=== PATIENT | male | born 1975 | race Caucasian/White ===

== ENCOUNTER 2018-12-07 11:52 | Emergency (ER) | payer OTHER ==
--- OUTSIDE RECORDS SUMMARY | 2018-12-07 12:06 | XMS REPORT | Continuity of Care Document ---
:1975 External Reference #:[id number] Author Name Jeramie Oliveira MD, FACS (transmitted by agent of provider Daya Florian) Address [address] [place] [address] [address] [place] [address] Care Team Providers Name Role Phone Saad Vicente MD - Family Care Team Information [employer] [phone] Medicine Problems Active Problems Provider Date Disturbance in sleep behavior Genesis Monson MD Onset: 01/29/2016 Obstructive sleep apnea syndrome Felicitas Quiroz DNP, RN, KNUCKLER-BC Onset: Hypersomnia Felicitas Quiroz DNP, RN, KNUCKLER-BC Onset: 02/24/2016 Social History Type Date Description Comments Sex Unknown ETOH Use Rarely consumes alcohol Tobacco Use Start: Unknown Patient has never smoked Recreational Drug Use Denies Drug Use Smoking Status Reviewed: 10/22/18 Patient has never smoked Exercise Type/Frequency Exercises regularly Allergies, Adverse Reactions, Alerts Description No Known Drug Allergies Medications Active Medications SIG Qnty Indications Ordering Date Provider Mandibular fabricate oral 1units G47.33 Felicitas Quiroz, 10/11/2016 Advancement Device appliance NIMISHA ENGEL, KNUCKLER-BC /mandibular Device advancement device for sleep apnea with needed adjustments. Fluticasone 2 sprays each Unknown 02/23/2016 Propionate nostril daily as needed 50mcg/Act Suspension Vitamin B-12 2 by mouth every day Unknown 01/29/2016 1000mcg Tablets Parnate 50mg in the a.m. ; Genesis Monson, 01/29/2016 10mg 40 mg stacey SIM Tablets Centrum Mens once a day Unknown 01/28/2016 Tablets Trazodone HCL 5 tablet at bedtime Unknown 50mg as needed Tablets Ketamine IV 48 MG occasionally Unknown Vitamin D 1 cap by mouth daily Unknown Magnesium 1 tab by mouth daily Unknown Medications Administered in Office Medication SIG Qnty Indications Ordering Provider Date No Injection Den Tapia MD 11/28/2017 Injection Immunizations Description No Information Available Vital Signs Date Vital Result Comment 10/22/2018 3:00pm Height 74 inches 6'2" Weight 169.00 lb Heart Rate 60 /min BP Systolic Sitting 128 mmHg BP Diastolic Sitting 78 mmHg Respiratory Rate 16 /min Body Temperature 97.8 F BMI (Body Mass Index) 21.7 kg/m2 08/21/2018 9:30am Height 74 inches 6'2" Heart Rate 73 /min BP Systolic 118 mmHg BP Diastolic 80 mmHg Respiratory Rate 12 /min Body Temperature 97.1 F Pain Level 1 Results Description No Information Available Procedures Description No Information Available Medical Devices Description No Information Available Encounters Type Date Location Provider Dx Diagnosis Office Visit 08/21/2018 [facility] 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 08/21/2018 K40.30 Unilateral inguinal hernia, with Den Elaine M.D. obstruction, without gangre 07/26/2018 M79.604 Pain in right leg Den Elaine M.D. Plan of Treatment 10/22/2018 - Jeramie Oliveira MD, FACSK40.90 Unilateral inguinal hernia, without obstruction or gangrene, not specified as recurrentFollow up:As needed Functional Status Description No Information Available Mental Status Description No Information Available Referrals Refer to Reason for Referral Status Appt Date Jeramie Oliveira MD, CCMBS right inguinal hernia Scheduled 10/22/[address] [place] [address] [address] [place] [address] [phone]
[2018-12-07] MEDS ORDERED: Ibuprofen TAB* 600 MG PO ONE (12:41)
[2018-12-07 12:53] LABS: ABS Basophils 0.1 10^3/ul (0-0.2); ABS Eosinophils 0.4 10^3/ul (0-0.6); ABS Lymphocytes 1.9 10^3/ul (1.0-4.8); ABS Monocytes 0.7 10^3/ul (0-0.8); ABS Neutrophils 4.4 10^3/ul (1.5-7.7); ABS Nucleated RBC 0.1 10^3/ul; Eosinophil % 5.3 %; Hematocrit 46 % (42-52); Hemoglobin 15.9 g/dL (14.0-18.0); Lymphocyte % 25.3 %; Mean Corpuscular HGB Conc 35 g/dL (31-36); Mean Corpuscular Hemoglobin 30 pg (27-31); Mean Corpuscular Volume 88 fL (80-94); Mean Platelet Volume 8.7 fL (7.4-10.4); Nucleated Red Blood Cells % 0.8; Platelet Count 197 10^3/uL (150-450); Red Blood Count 5.25 10^6 /uL (4.18-5.48); Red Cell Distribution Width 13 % (10-15); White Blood Count 7.3 10^3/uL (3.5-10.8)
[2018-12-07 13:13] LABS: Albumin 4.7 g/dL (3.2-5.2); Albumin/Globulin Ratio 1.8 (1-3); BUN/Creatinine Ratio 17.4 (8-20); Calcium 9.7 mg/dL (8.6-10.3); EGFR African American 108.6 (>60); EGFR Non-African American 89.8 (>60); Globulin 2.6 g/dL (2-4); Potassium 4.3 mmol/L (3.5-5.0); Total Bilirubin 0.7 mg/dL (0.2-1.0); Total Protein 7.3 g/dL (6.4-8.9)
--- NOTE | 2018-12-07 14:07 | ED ---
HPI Chest Pain - HPI Summary HPI Summary: This patient is a 43-year-old male presenting to the ED with chest wall pain. He states he fell while [place] running approximately 1 week ago. He states while everything has improved, he continues to have chest wall pain. Symptoms are worse with movement and palpation, better with rest and lying still. He is not use heat or ibuprofen for relief. He states he became concerned as the symptoms had worsened from a 3/10 pain to a 5/10 of pain. He continues to eat and drink okay. Denies any abdominal pain. Denies any signs of trauma or bleeding. He does not have a bleeding disorder and does not take anticoagulation medications. Denies any history of blood clots or bleeding disorder. Denies urinary symptoms. Denies any shortness of breath, however he does endorse these symptoms become worse with coughing. He states the other concern he had was his apple watch detected a low heart rate last evening which he typically has a low heart rate of 45-55, however this stated it was approximately 30. He has been denying any headaches, hemoptysis or other discomforts. He does endorse some pain to the upper back, however this is only with movement and feels muscular. He takes no medications. Denies any allergies. No previous surgeries. PCP is Dr. Vicente. - History of Current Complaint Chief Complaint: EDFall Time Seen by Provider: 12/07/18 12:06 Hx Obtained From: Patient Onset/Duration: Started Weeks Ago - 1 week ago Timing: Constant Initial Severity: Moderate Current Severity: Moderate Pain Intensity: 4 Pain Scale Used: 0-10 Numeric Chest Pain Location: Diffuse - upper chest wall - bilateral Chest Pain Radiates: No Alleviating Factor(s): Rest, Position Associated Signs and Symptoms: Negative: Chest Pain, Vision Changes, Anxiety, Recent Stress, Chills, Lightheadedness, Cough, Nonproductive Cough, Bloody Sputum, Wheezing, Edema - Risk Factors Pulmonary Embolism Risk Factors: Negative TAD Risk Factors: Negative - Allergy/Home Medications Allergies/Adverse Reactions: Allergies Allergy/AdvReac Type Severity Reaction Status Date / Time No Known Allergies Allergy Verified 08/08/17 09:56 Home Medications: Home Medications Ketamine HCl in Sterile Water [Ketamine 50 mg/ml-Water Syring] 50 mg INJ MONTHLY 12/07/18 [History Confirmed 12/07/18] Tranylcypromine (NF) [Parnate (NF)] 10 mg PO BID 12/07/18 [History Confirmed ] traZODone TAB* [Desyrel TAB*] 250 mg PO BEDTIME PRN 12/07/18 [History Confirmed 12/07/18] PMH/Surg Hx/FS Hx/Imm Hx Previously Healthy: Yes Endocrine/Hematology History: Denies: Hx Diabetes Cardiovascular History: Denies: Hx Hypertension, Hx Pacemaker/ICD History: Denies: Hx Renal Disease Sensory History: Denies: Hx Hearing Aid Psychiatric History: Denies: Hx Panic Disorder - Surgical History Surgery Procedure, Year, and Place: APPENDIX, RT HAND-CLEANED UP INFECTION - Immunization History Hx Pertussis Vaccination: No Immunizations Up to Date: Yes Infectious Disease History: No Infectious Disease History: Denies: Traveled Outside the [place] in Last 30 Days - Social History Occupation: Employed Full-time Lives: With Family Alcohol Use: None Hx Substance Use: No Substance Use Type: Reports: None Hx Tobacco Use: No Smoking Status (MU): Never Smoked Tobacco Review of Systems Negative: Fever, Chills, Fatigue, Skin Diaphoresis Negative: Palpitations, Chest Pain Negative: Shortness Of Breath, Cough Genitourinary: Negative Positive: no symptoms reported, see HPI Positive: Arthralgia - bilateral anterior chest wall pain . Negative: Myalgia Negative: Rash, Bruising Neurological: Negative All Other Systems Reviewed And Are Negative: Yes Physical Exam Triage Information Reviewed: Yes Vital Signs On Initial Exam: Initial Vitals Temp Pulse Resp BP Pulse Ox 96.6 F 77 18 140/93 99 12/07/18 11:53 12/07/18 11:53 12/07/18 11:53 12/07/18 11:53 12/07/18 11:53 Vital Signs Reviewed: Yes Appearance: Positive: Well-Appearing, Well-Nourished Skin: Positive: Warm, Skin Color Reflects Adequate Perfusion Head/Face: Positive: Normal Head/Face Inspection Eyes: Positive: EOMI, ANNIE, Conjunctiva Clear Neck: Positive: Supple, No Lymphadenopathy Respiratory/Lung Sounds: Positive: Clear to Auscultation, Breath Sounds Present Cardiovascular: Positive: RRR, Pulses are Symmetrical in both Upper and Lower Extremities Musculoskeletal: Positive: Pain @ - anterior bilateral chest wall pain Neurological: Positive: Speech Normal Psychiatric: Positive: Affect/Mood Appropriate AVPU Assessment: Alert Diagnostics - Vital Signs Vital Signs Temp Pulse Resp BP Pulse Ox 12/07/18 11:53 96.6 F 77 18 140/93 99 - Laboratory Lab Results: Lab Results 12/07/18 12/07/18 12/07/18 Range/Units 12:48 12:48 12:48 WBC 7.3 (3.5-10.8) 10^3/uL RBC 5.25 (4.18-5.48) 10^6 /uL Hgb 15.9 (14.0-18.0) g/dL Hct 46 (42-52) % MCV 88 (80-94) fL MCH 30 (27-31) pg MCHC 35 (31-36) g/dL RDW 13 (10-15) % Plt Count 197 (150-450) 10^3/uL MPV 8.7 (7.4-10.4) fL Neut % (Auto) 59.7 % Lymph % (Auto) 25.3 % [place] % (Auto) 9.0 % Eos % (Auto) 5.3 % Baso % (Auto) 0.7 % Absolute Neuts (auto) 4.4 (1.5-7.7) 10^3/ul Absolute Lymphs (auto) 1.9 (1.0-4.8) 10^3/ul Absolute Monos (auto) 0.7 (0-0.8) 10^3/ul Absolute Eos (auto) 0.4 (0-0.6) 10^3/ul Absolute Basos (auto) 0.1 (0-0.2) 10^3/ul Absolute Nucleated RBC 0.1 10^3/ul Nucleated RBC % 0.8 Sodium 139 (135-145) mmol/L Potassium 4.3 (3.5-5.0) mmol/L Chloride 102 (101-111) mmol/L Carbon Dioxide 32 (22-32) mmol/L Anion Gap 5 (2-11) mmol/L BUN 16 (6-24) mg/dL Creatinine 0.92 (0.67-1.17) mg/dL Est GFR ( Amer) 108.6 (>60) Est GFR (Non-Af Amer) 89.8 (>60) BUN/Creatinine Ratio 17.4 (8-20) Glucose 84 (70-100) mg/dL Lactic Acid 0.9 (0.5-2.0) mmol/L Calcium 9.7 (8.6-10.3) mg/dL Total Bilirubin 0.70 (0.2-1.0) mg/dL AST 17 (13-39) U/L ALT 17 (7-52) U/L Alkaline Phosphatase 70 (34-104) U/L Troponin I 0.00 (<0.04) ng/mL Total Protein 7.3 (6.4-8.9) g/dL Albumin 4.7 (3.2-5.2) g/dL Globulin 2.6 (2-4) g/dL Albumin/Globulin Ratio 1.8 (1-3) Result Diagrams: 12/07/18 12:48 12/07/18 12:48 Lab Statement: Any lab studies that have been ordered have been reviewed, and results considered in the medical decision making process. Chest Pain Course/Dx - Course Course Of Treatment: During this course of treatment, the patient is evaluated for chest wall pain. He has no cardiac history and denies any history of hypertension, hypercoagulability, or bleeding disorder. Patient appears well, nondiaphoretic and nontoxic in appearing. He states he has been eating and drinking well. He denies any abdominal pain or shortness of breath. On physical examination, lungs CTA, RRR. Vital signs are stable and his heart rate is 77. Patient does not appear to be anxious or in respiratory distress. Pain to palpation of the right and left anterior chest wall without pain on palpation to the scapular region upper back. Sxs are worse with rotation of the hips and shoulders and continues to feel this discomfort in the chest wall without radiation. Abdomen soft and nontender, bowel sounds present. No CVA tenderness bilaterally. No pain to the neck. He does admit to hitting his head , however denies LOC and denies any headache, confusion, memory loss or visual changes or disturbances. Labs are obtained including a troponin of 0.00. An EKG was obtained which shows a normal sinus rhythm with a rate of 60. Chest x- ray shows no acute cardiopulmonary disease. There are no obvious rib fractures and this was not noted upon the CXR impression. Patient is low risk for cardiac pathology. Due to the tenderness in the anterior chest wall without obvious bleeding, he will be diagnosed with chest wall pain/soft tissue injury. Discussed with the patient he will follow-up with Dr. Vicente next week, especially if symptoms become worse or change. He was given ibuprofen 600mg in the ED with some improvement. Pt is OK for DC at this time and in good condition. Ambulating, eating and drinking well prior to DC. - Chest Pain Differential Diagnosis/HQI/PQRI: Chest Wall, Other: - chest pain, costocondritis , MSK injury, soft tissue injury - Diagnoses Provider Diagnoses: Chest wall pain Discharge ED - Sign-Out/Discharge Documenting (check all that apply): Patient Departure Patient Received Moderate/Deep Sedation with Procedure: No - Discharge Plan Condition: Stable Disposition: HOME Patient Education Materials: Chest Wall Pain (ED) Referrals: Saad Vicente MD [Primary Care Provider] - 3 Days (If chest wall pain symptoms worsen, pt will call Dr. Vicente.) Additional Instructions: Ibuprofen 600mg three times daily Moist heat to the area Please follow up with Dr. Vicente next week - Billing Disposition and Condition Condition: STABLE Disposition: Home
--- NOTE | 2018-12-07 14:36 | PN ---
Progress Note - Progress Note Date of Service: 12/07/18 Note: Asked by patient to return as he had more questions. Discussed with patient at length the most probable cause of his symptoms. He is very concerned that this is a muscle "tear" and is wondering if that would put any strain on the heart. He is also concerned that an MRI would be appropriate to assess for this muscle strain/tear. I discussed with the patient that the probable cause of his symptoms is due to to a muscle strain and inflammation from his fall last week. While he is concerned with a muscle tear, iI have explained to see Dr. Vicente for continuing pain and symptoms. He will take ibuprofen.
[2018-12-07 14:58] VITALS: BP 106/73
== END 2018-12-07 14:35 | disposition home or self-care (01) ==
LOC: ED 11:52
DX: R07.89 Other chest pain (principal); Z79.899 Other long term (current) drug therapy
CPT/HCPCS: 36415; 71046; 80053; 83605; 84484; 85025; 93005; 99282; A9270-GY